=== PATIENT | female | born 1980 | race Caucasian/White ===

== ENCOUNTER 2022-04-12 12:39 | Emergency (ER) | payer MEDICAID ==
[~2022-04-12] VITALS: Ht 170.2 cm; Wt 68.2 kg
[2022-04-12 12:46] VITALS: TEMP 98.2
[2022-04-12] MEDS ORDERED: WELLBUTRIN XL150 MG PO (12:49)
[2022-04-12] MEDS ORDERED: ADDERALL XR 10M10 MG PO (12:49)
[2022-04-12] MEDS ORDERED: MOBIC 7.5MG7.5 MG PO (12:50)
[2022-04-12] MEDS ORDERED: KLONOPIN 0.5MG0.5 MG PO (12:50)
[2022-04-12] MEDS ORDERED: NORCO 325 MG-51 TAB PO (12:51)
[2022-04-12 14:35] VITALS: BP 158/100; PULSE 78
== END 2022-04-12 14:37 | disposition home or self-care (01) ==
LOC: COL.ER 12:39
DX: S00.83XA Contusion of other part of head, initial encounter (principal); W54.1XXA Struck by dog, initial encounter